=== PATIENT | female | born 1940 | race Caucasian/White ===

== ENCOUNTER 2020-09-30 11:05 | Emergency (ER) | payer OTHER, MEDICAID ==
[~2020-09-30] VITALS: Ht 152.4 cm; Wt 60.8 kg
[2020-09-30 11:05] VITALS: BP 175/84
--- NOTE | 2020-09-30 11:30 | NUR ---
80 Y/O F BIBA FROM HOME, PT WAS FOUND IN BATHROOM WAS ASSISTED TO BED, PT WAS CONFUSED AND DISORIENTED, 47 GLU ON SCENE, [facility] GAVE D10 AND GLU WAS 220. PT HAS GLU OF 152 AT THIS TIME. PT IS NOW A&OX4, DENIES ANY INTAKE OF FOOD IN MORNING, LACK OF APPETITE, PT STATES SHE TAKES PO MEDICATIONS FOR GLUCOSE CONTROL. DENIES PAIN AT THIS TIME. DENIES N/V/D; SKIN IS PINK/WARM/DRY; AAOX4 UNABLE TO AMBULATE AT THIS TIME. LUNGS CLEAR BL; HR EVEN AND REGULAR; PT DENIES ANY FEVER, CP, SOB, OR COUGH AT THIS TIME; PATIENT STATES PAIN OF 0/10 AT THIS TIME; VSS; PATIENT POSITIONED FOR COMFORT; HOB ELEVATED; BEDRAILS UP X2; BED DOWN. ER MD MADE AWARE OF PT STATUS. PMH: HTN, DM2 NKA
--- NOTE | 2020-09-30 11:38 | NUR ---
PT TAKEN TO CT
[2020-09-30 11:50] LABS: BASOPHILS % (AUTO) 0.7 % (0.0-2.0); EOSINOPHILS # (AUTO) 0.3 K/uL (0-0.4); EOSINOPHILS % (AUTO) 6.1 % (0.0-4.0); HEMATOCRIT 37.5 % (36-48); HEMOGLOBIN 12.7 g/dL (12.0-16.0); LYMPHOCYTES # (AUTO) 1.8 K/uL (2.5-16.5); LYMPHOCYTES % (AUTO) 33.6 % (20.5-51.1); MEAN CORPUSCULAR HEMOGLOBIN 31 pg (27-31); MEAN CORPUSCULAR HGB CONC 34 g/dL (33-37); MEAN CORPUSCULAR VOLUME 90.7 fL (80-94); MONOCYTES # (AUTO) 0.4 K/uL (0.8-1.0); MONOCYTES % (AUTO) 6.7 % (1.7-9.3); NEUTROPHILS # (AUTO) 2.8 K/uL (1.8-7.7); NEUTROPHILS % (AUTO) 52.9 % (42.2-75.2); PLATELET COUNT (AUTO) 162 K/uL (140-450); RED BLOOD CELL COUNT(AUTO) 4.14 MIL/uL (4.20-5.40); RED CELL DISTRIBUTION WIDTH 15.4 % (11.6-13.7); WHITE BLOOD COUNT (AUTO) 5.3 K/uL (4.8-10.8)
--- NOTE | 2020-09-30 11:50 | NUR ---
Patient returned from CT via [facility].
[2020-09-30 12:05] LABS: ANION GAP 9.2 (8-16); ASPARTATE AMINOTRANSFERASE 27 U/L (15-37); CARBON DIOXIDE 28.3 mmol/L (21-32); CHLORIDE 101 mmol/L (98-107); CREATININE 0.8 mg/dL (0.6-1.3); GLUCOSE 158 mg/dL (74-106); POTASSIUM 3.5 mmol/L (3.5-5.1); SODIUM SERUM 135 mmol/L (136-145); UREA NITROGEN, BLOOD 10 mg/dL (7-18)
--- NOTE | 2020-09-30 13:07 | NUR ---
Pt assisted on to bedpan, UA collected.
--- NOTE | 2020-09-30 13:24 | NUR ---
IV removed, catheter intact and site benign. Applied folded 4x4 gauze and tape to stop bleeding.
[2020-09-30 13:47] VITALS: BP 175/84
--- NOTE | 2020-09-30 13:47 | NUR ---
Patient discharged with v/s stable. Written and verbal after care instructions given and explained. Patient verbalized understanding. Ambulatory with to car. All questions addressed prior to discharge. Advised to follow up with PMD.
[2020-09-30 13:49] LABS: APPEARANCE,URINE CLEAR (CLEAR); BILIRUBIN,URINE NEGATIVE (NEGATIVE); BLOOD, URINE 2+ (NEGATIVE); COLOR,URINE YELLOW (YELLOW); LEUKOCYTE ESTERASE ,URINE NEGATIVE (NEGATIVE); NITRITE, URINE NEGATIVE (NEGATIVE); PH,URINE 7.5 (5.0-9.0); UGLUCOSE 2+ (NEGATIVE)
[2020-09-30 14:29] LABS: WBC,URINE 0-5 /HPF (0-5)
== END 2020-09-30 13:47 | disposition home or self-care (01) ==
LOC: MED 11:05
DX: E11.649 Type 2 diabetes mellitus with hypoglycemia without coma (principal)
CPT/HCPCS: 36415; 70450; 80053; 81001; 85025; 99284